=== PATIENT | female | born 1930 | race Caucasian/White ===

== ENCOUNTER 2016-05-31 23:31 | Inpatient (IN) | payer MEDICARE ==
[~2016-05-31] VITALS: Ht 165.1 cm; Wt 51.9 kg
[~2016-05-31 23:31] MED LIST: ACIPHEX20 MG OR; ASPIRIN LOW81 M1 PO; ATENOLOL25 MG OR; ATENOLOL25 MG PO; BL ADULT ASA81 MG OR; CALCIUM D- PO; CELEBREX200 MG OR; CELEBREX200 MG PO; CRANBERRY500 MG PO; CYANOCOBALAM1000 MC1 IM; CYCLOBENZAPR10 MG PO; CYCLOBENZAPRINE10 MG PO; DEPO-MEDROL40 MG/ML IM; DONNATA1 OR; FOSAMAX10 MG OR; GAS RELIEF125 M2 PO; GLUCO/CHOND PO; IMODIUM ADV PO; IMODIUM2 MG PO; LEVOTHYROXIN100 MC1 PO; LEVOTHYROXIN100 MCG PO; LEVOTHYROXIN137 MCG PO; LEVOTHYROXIN75 MCG PO; LEVOX; LEVOXYL PO; LEVOXYL50 MCG OR; LOPID600 MG PO; LORTAB 5 OR; MEDDOSEPAK OR; MELOXICAM7.5 MG PO; MULTIVITAMI9 PO; MULTIVITAMIN PO; NAPROSYN500 MG PO; OMEGA 31000 MG PO; OMEGA-3 FISH1000 MG PO; OMEPRAZOLE20 MG PO; PNEUMOVAX 23 IM; PREVACID15 M1; PREVACID15 M1 PO; PRILOSEC20 MG PO; PROCTOSOL HC2.5 % RE; SYNTHROID125 MCG PO; VITAMIN B-122500 MCG SL; ZANAFLEX4 M2 PO; ZITHROMAX500 MG PO
[2016-06-01] MEDS ORDERED: LEVOXYL PO (00:23)
[2016-06-01] MEDS ORDERED: CITRACA1 PO (00:30)
[2016-06-01] MEDS ORDERED: MELATONIN1 MG PO (00:31)
[2016-06-01 01:03] LABS: HEMATOCRIT 36.9 % (37.0-47.0); HEMOGLOBIN 11.7 g/dl (12.0-16.0); IMMATURE GRANULOCYTES 1.1 % (0.0-1.0); MEAN CELL VOLUME 88.9 fL CALC (80.0-100.0); MEAN CORPUSCULAR HGB 28.2 pG CALC (26.0-32.0); MEAN CORPUSCULAR HGB CONC 31.7 g/L CALC (32.0-36.0); NEUT# 8.86 thou/uL (2.00-7.15); RED BLOOD COUNT 4.15 mill/uL (4.20-5.60); RED CELL DISTRI WIDTH 13.4 % (11.5-15.5)
[2016-06-01 01:21] LABS: ALBUMIN 3.5 g/dL (3.2-5.0); ALKALINE PHOSPHATASE 75 u/l (38-126); ANION GAP 13 (6-22 (CALC)); BILIRUBIN, TOTAL 0.3 mg/dL (0.0-1.4); BUN 17 mg/dL (8-23); BUN/CREATININE RATIO 20 (12-20 (CALC)); CALCIUM 9.4 mg/dL (8.4-10.2); CARBON DIOXIDE 26 mmol/l (22-30); CHLORIDE 104 mmol/l (95-108); CREATININE 0.9 mg/dL (0.5-1.0); GFR 59 ML/MIN (>=60 (CALC)); GFR FOR AFR.AMER. > 60 ML/MIN (>=60 (CALC)); GLUCOSE 119 mg/dL (82-115); POTASSIUM 3.9 mmol/l (3.5-5.1); SGOT/AST 22 u/l (9-36); SGPT/ALT 30 u/l (11-66); SODIUM 139 mmol/l (137-146); TOTAL PROTEIN 6.4 g/dL (6.3-8.2)
[2016-06-01 01:22] LABS: ACT PARTIAL THROMBO TIME 26.7 SECONDS (20.0-32.5); PROTHROMBIN TIME 10.8 SECONDS (9.0-12.5)
[2016-06-01 02:06] LABS: URINE BILIRUBIN - DIPSTICK NEGATIVE (NEGATIVE); URINE BLOOD DIPSTICK NEGATIVE (NEGATIVE); URINE CLARITY CLEAR; URINE COLOR YELLOW; URINE GLUCOSE - DIPSTICK NEGATIVE (NEGATIVE); URINE KETONE NEGATIVE (NEGATIVE); URINE LEUK ESTERASE NEGATIVE (NEGATIVE); URINE NITRITE - DIPSTICK NEGATIVE (Negative); URINE PROTEIN - DIPSTICK NEGATIVE (NEG-TRACE); URINE UROBILINOGEN - DIPSTICK 0.2 E.U./dL (0.2)
[2016-06-01 03:30] VITALS: BP 139/57
[2016-06-01 08:42] VITALS: BP 154/44
[2016-06-01 15:03] VITALS: BP 128/60
[2016-06-01 19:35] VITALS: BP 154/72
[2016-06-02 03:49] VITALS: BP 124/50
[2016-06-02 06:03] LABS: HEMATOCRIT 35.1 % (37.0-47.0); HEMOGLOBIN 11.1 g/dl (12.0-16.0); IMMATURE GRANULOCYTES 0.3 % (0.0-1.0); MEAN CELL VOLUME 90.7 fL CALC (80.0-100.0); MEAN CORPUSCULAR HGB 28.7 pG CALC (26.0-32.0); MEAN CORPUSCULAR HGB CONC 31.6 g/L CALC (32.0-36.0); NEUT# 3.89 thou/uL (2.00-7.15); RED BLOOD COUNT 3.87 mill/uL (4.20-5.60); RED CELL DISTRI WIDTH 13.5 % (11.5-15.5)
[2016-06-02 06:14] LABS: ANION GAP 11 (6-22 (CALC)); BUN 13 mg/dL (8-23); BUN/CREATININE RATIO 17 (12-20 (CALC)); CALCIUM 9.2 mg/dL (8.4-10.2); CARBON DIOXIDE 27 mmol/l (22-30); CHLORIDE 105 mmol/l (95-108); CREATININE 0.8 mg/dL (0.5-1.0); GFR > 60 ML/MIN (>=60 (CALC)); GFR FOR AFR.AMER. > 60 ML/MIN (>=60 (CALC)); GLUCOSE 114 mg/dL (82-115); SODIUM 139 mmol/l (137-146)
[2016-06-02 07:40] VITALS: BP 135/61
[2016-06-02 15:00] VITALS: BP 144/66
[2016-06-02] MEDS ORDERED: LORTAB 5-325 MG1 TAB PO (15:27)
[2016-06-02] MEDS ORDERED: XARELTO10 MG PO (15:50)
== END 2016-06-02 19:58 | DRG 552 ==
LOC: ENPENDDIS → ED 23:31 → ED-I 06-01 02:30 → ED 06-01 02:44 → MS2 06-01 02:45
PROVIDERS: Emergency Medicine; ADMIT Internal Medicine; ATTEND Internal Medicine
PROC: 0T9B70Z Drainage of Bladder with Drainage Device, Via Natural or Artificial Opening (ICD-10-PCS; principal; 2016-06-01)
DX: S32.10XA Unspecified fracture of sacrum, initial encounter for closed fracture (principal); S32.591A Other specified fracture of right pubis, initial encounter for closed fracture; I10 Essential (primary) hypertension; M19.90 Unspecified osteoarthritis, unspecified site; E03.9 Hypothyroidism, unspecified; W01.0XXA Fall on same level from slipping, tripping and stumbling without subsequent striking against object, initial encounter; Y92.003 Bedroom of unspecified non-institutional (private) residence as the place of occurrence of the external cause; Y99.9 Unspecified external cause status
CPT/HCPCS: J1650